=== PATIENT | male | born 1955 | race Asian ===

== ENCOUNTER 2017-08-04 16:36 | Outpatient (CLI) | payer OTHER | END 2017-08-04 16:54 | disposition short-term general hospital (02) | LOC: AMB 16:36 | DX: M25.511 Pain in right shoulder (principal); W18.39XA Other fall on same level, initial encounter; Y92.098 Other place in other non-institutional residence as the place of occurrence of the external cause | CPT/HCPCS: A0425; A0427 ==

== ENCOUNTER 2017-08-04 21:00 | Outpatient (CLI) | payer OTHER | END 2017-08-04 22:15 | disposition short-term general hospital (02) | LOC: AMB 21:00 | DX: S00.83XA Contusion of other part of head, initial encounter (principal); S01.111A Laceration without foreign body of right eyelid and periocular area, initial encounter; R25.2 Cramp and spasm; M47.892 Other spondylosis, cervical region; N18.3 Chronic kidney disease, stage 3 (moderate); M47.896 Other spondylosis, lumbar region; S43.084A Other dislocation of right shoulder joint, initial encounter; W01.0XXA Fall on same level from slipping, tripping and stumbling without subsequent striking against object, initial encounter; Y92.89 Other specified places as the place of occurrence of the external cause | CPT/HCPCS: A0425; A0429 ==

== ENCOUNTER 2017-12-07 12:37 | Outpatient (CLI) | payer OTHER ==
[2017-12-07 13:09] LABS: PLATELET COUNT 233 K/uL (142-355)
[2017-12-07 13:22] LABS: POTASSIUM 4.8 mmol/L (3.6-5.2)
== END 2017-12-07 19:49 | disposition home or self-care (01) ==
LOC: LABW 12:37
PROVIDERS: Internal Medicine
DX: E11.69 Type 2 diabetes mellitus with other specified complication (principal); F51.01 Primary insomnia
CPT/HCPCS: 36415; 80053; 80061; 81000; 82043; 82570; 83036; 84443; 84550; 85027